=== PATIENT | female | born 1980 | race Caucasian/White ===

== ENCOUNTER 2018-02-22 10:29 | Emergency (ER) | payer OTHER ==
[2018-02-22 10:48] VITALS: BMI 23.6
[2018-02-22 10:51] VITALS: BP 110/74; PULSE 90; RESP 18; TEMP 98.1; O2SAT 97
[2018-02-22] MEDS ORDERED: Naproxen 550 mg Tab PO STA (11:44)
[2018-02-22] MEDS ORDERED: Lidocaine 5% Patch TD ONE ×2 (11:44→12:12)
--- NOTE | 2018-02-22 11:45 | C.PDOC ---
History Of Present Illness RECUR R NECK PAIN X 1 WEEK. R NECK RADIATION R ELBOW. WORSE W NECK MOVEMENT. OCC "SHARP" PAIN DOWN ARM. PS HO SIM PRIOR SX "OCCASIONALLY". PS WAS ALWAYS CARRYING BABY W RUE, NOW SHIFTED TO LUE. NO WEAKNESS. NO IMPROVE W MOTRIN 400 MG ALSO CO SORE THROAT, "BALL" ON R THROAT X SEV DAYS. NO FEVER, URI SX. EXAM MILD DIST NONTOXIC HEENT +1 EXUDATE R TONSIL NO ERYTHEMA, SWELL. NECK +PAIN W R ROTATION. NO CSPINE TEND. FULL ROM WO DIFF. +SPASM W NECK. NO SWELL NEURO NO FOCAL DEF MDM PT ADVISED TO IMMEDIATELY STOP BREAST FEEDING, PT AGREES W PLAN. FU PMD IF PERSIST SX Time Seen by Provider: 02/22/18 10:56 Chief Complaint (Nursing): Upper Extremity Problem/Injury History Per: Patient History/Exam Limitations: no limitations Onset/Duration Of Symptoms: Days Current Symptoms Are (Timing): Still Present Quality Of Discomfort: "Pain" Previous Symptoms: Neck Pain (recurrent) Associated Symptoms: denies: New Weakness, New Numbness Additional History Per: Patient Past Medical History Reviewed: Historical Data, Nursing Documentation, Vital Signs Vital Signs: Last Vital Signs Temp 98.1 F 02/22/18 10:49 Pulse 90 02/22/18 10:49 Resp 18 02/22/18 10:49 BP 110/74 02/22/18 10:49 Pulse Ox 97 02/22/18 10:49 - Medical History PMH: No Chronic Diseases Surgical History: No Surg Hx Family History: States: No Known Family Hx - Social History Hx Tobacco Use: No Hx Alcohol Use: No Hx Substance Use: No - Immunization History Hx Tetanus Toxoid Vaccination: No Hx Influenza Vaccination: No Hx Pneumococcal Vaccination: No Review Of Systems ENT: Positive for: Throat Pain Musculoskeletal: Positive for: Neck Pain (radiating to right elbow) Neurological: Negative for: Weakness, Numbness Physical Exam - Physical Exam Appears: Non-toxic, No Acute Distress Skin: Normal Color, Warm, Dry Head: Atraumatic, Normacephalic Eye(s): bilateral: Normal Inspection Ear(s): Bilateral: Normal Nose: Normal Oral Mucosa: Moist Throat: No Erythema, Exudate (+ 1 exudate right tonsil; no swelling) Neck: Normal ROM (full ROM w/o difficulty; +pain with rotation), No Midline Cervical Tenderness, No Paracervical Tenderness, Supple Cardiovascular: Rhythm Regular Respiratory: Normal Breath Sounds Back: Normal Inspection Extremity: Normal ROM Neurological/Psych: Oriented x3, Normal Motor, Normal Sensation Gait: Steady ED Course And Treatment O2 Sat by Pulse Oximetry: 97 (RA) Pulse Ox Interpretation: Normal Progress Note: Patient given Tylenol, flexeril, naproxen, and lidoderm patch for pain relief. Given decadron PO as well. Patient advised to immediately stop breast feeding, and is agreeable with plan. Informed to follow up with PMD in symptoms persist. Disposition Counseled Patient/Family Regarding: Diagnosis, Need For Followup, Rx Given - Disposition Referrals: YOUR,PMD [Other] Disposition: HOME/ ROUTINE Disposition Time: 11:45 Condition: IMPROVED Additional Instructions: APLICA PARCHE AL KAY AFECTADA. MAX 3 PARCHES A LA VEZ. RETIRE EL PATCH 12 HORAS DESPUS DE LA APLICACIN INICIAL. ALTERNATIVAS 12 HORAS ACTIVADAS, 12 HORAS DESACTIVADAS. Prescriptions: Acetaminophen [Tylenol Extra Strength] 2 tab PO Q6 #30 tablet Cyclobenzaprine [Flexeril] 10 mg PO TID #15 tab Lidocaine 5% [Lidoderm] 1 ea TD PRN PRN #10 patch PRN Reason: Pain, Moderate (4-7) Naproxen 500 mg PO BID #30 tab Instructions: Radiculopathy (DC), Torticollis (DC) Forms: [facility] (German), Work Excuse Print Language: DJIBOUTIAN - Clinical Impression Clinical Impression: Cervical radiculopathy, Torticollis, Tonsillar exudate - Scribe Statement The provider has reviewed the documentation as recorded by the Luke Vail Provider Attestation: All medical record entries made by the Luke were at my direction and personally dictated by me. I have reviewed the chart and agree that the record accurately reflects my personal performance of the history, physical exam, medical decision making, and the department course for this patient. I have also personally directed, reviewed, and agree with the discharge instructions and disposition.
[2018-02-22] MEDS ORDERED: Naproxen 550 mg Tab PO ONE (12:05)
== END 2018-02-22 12:25 | disposition home or self-care (01) ==
LOC: C.ER 10:29
DX: M54.12 Radiculopathy, cervical region (principal); M43.6 Torticollis; J35.8 Other chronic diseases of tonsils and adenoids
CPT/HCPCS: 99284; J8540